=== PATIENT | female | born 1955 | race Caucasian/White ===

== ENCOUNTER → 2017-09-25 | Outpatient (CLI) | payer OTHER ==
--- NOTE | 2017-09-26 08:50 | MM ---
Reason for exam: screening (asymptomatic). Last mammogram was performed 14 years and 7 months ago. Physical Findings: A clinical breast exam by your physician is recommended on an annual basis and results should be correlated with mammographic findings. MG Screening Mammo w CAD Bilateral CC and MLO view(s) were taken. Prior study comparison: May 13, 2014, mammogram, performed at [facility]. The breast tissue is heterogeneously dense. This may lower the sensitivity of mammography. Finding: There are typically benign dystrophic, round, linear calcifications in both breasts. There is a chronic nodularity bilaterally. Asymmetric breast tissue in the left upper aspect. There is no discrete abnormality. ASSESSMENT: Benign, BI-RAD 2 RECOMMENDATION: Routine screening mammogram of both breasts in 1 year.
== END | disposition home or self-care (01) ==
LOC: RADMAMWWP 09:14
PROVIDERS: ATTEND Family Medicine
DX: Z12.31 Encounter for screening mammogram for malignant neoplasm of breast (principal)

== ENCOUNTER 2020-04-17 14:17 | Emergency (ER) | payer OTHER ==
[2020-04-17 14:25] VITALS: TEMP 97.8
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
[2020-04-17] MEDS: ORPHENADRINE 30 MG/ML 2 ML VIAL IM STA ×2 (14:53→14:54)
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
[2020-04-17] MEDS ORDERED: IBUPROFEN 600 MG STARTER PACK 4 TAB BTL PO STA (15:58)
[2020-04-17] MEDS ORDERED: CYCLOBENZAPRINE 10MG STARTER 3 TAB BTL PO STA (15:58)
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
[2020-04-17 17:13] VITALS: BP 138/90; PULSE 79; RESP 18
== END 2020-04-17 17:13 | disposition home or self-care (01) ==
LOC: EC 14:17
DX: S16.1XXA Strain of muscle, fascia and tendon at neck level, initial encounter (principal); S83.92XA Sprain of unspecified site of left knee, initial encounter; M54.2 Cervicalgia; M54.5 Low back pain; J45.909 Unspecified asthma, uncomplicated; K21.9 Gastro-esophageal reflux disease without esophagitis; E78.5 Hyperlipidemia, unspecified; F17.200 Nicotine dependence, unspecified, uncomplicated; Z79.51 Long term (current) use of inhaled steroids; Z79.899 Other long term (current) drug therapy; Z88.5 Allergy status to narcotic agent; V49.50XA Passenger injured in collision with unspecified motor vehicles in traffic accident, initial encounter; Y92.410 Unspecified street and highway as the place of occurrence of the external cause; Y93.89 Activity, other specified
CPT/HCPCS: 72100; 73562; 72125; 70450; 99285; 96372; J2360

== ENCOUNTER → 2024-03-05 | Outpatient (CLI) | payer OTHER ==
--- NOTE | 2024-03-05 12:59 | CTL ---
EXAMINATION TYPE: CT Low Dose Lung DATE OF EXAM ORDERED: 03/05/2024 HISTORY: 58-year-old female former smoker, 20 pack year history. Lung cancer screening. Z12.2 LUNG C A SCR Z87.[address] DLP: 126.[address] CTDI: 3.7 mGy Automated exposure control for dose reduction was used. SCREENING VISIT: Baseline COMPARISON: None TECHNIQUE: Low dose computed tomography scan was performed through the chest at 1 mm thick sections a nd reconstructed images in multiple planes at 1 mm and [address] DIAGNOSTIC QUALITY: Satisfactory FINDINGS: The heart is normal size without pericardial effusion. Mild RCA and LCA coronary calcifications. Aorta normal caliber with mild atherosclerotic arch calcifications and conventional arch vessel branc roman anatomy. No thoracic lymphadenopathy by CT size criteria. Mild diffuse bronchial wall thickening. A thin strandy atelectasis or scarring at the inferior lingul a. Minimal biapical pleural-parenchymal scarring. Couple adjacent 3 mm pulmonary nodules posterior right midlung, axial image 114. Calcified granuloma in the anterior basilar left lower lobe. 3 mm subpleural pulmonary nodule posterior left midlung, axial image 111. 4 mm subpleural pulmonary nodule lateral left lower lobe, axial image 176. 4 mm left lower lobe pulmonary nodule, axial image 124. 4 mm lateral left basilar pulmonary nodule, image 212. Small to moderate sized hiatal hernia. Cholecystectomy clips. Bones: [facility] within the lower thoracic spine. Slight accentuated mid to lower thoracic kyphosis. IMPRESSION: 1. LungRADS 2, benign. A few scattered pulmonary nodules measuring up to 4 mm on baseline screening. 2. Small to moderate size hiatal hernia. 3. DISH within the lower thoracic spine. CT LUNG RAD AND CT CHEST RECOMMENDATION: Lung-Rad 2 Benign Appearance or Behavior: Continue annual sc reening with LDCT in 12 months. S Modifier (other clinically significant findings): None
--- NOTE | 2024-03-10 08:25 | MM ---
Reason for Exam: Screening (asymptomatic). Last mammogram was performed 1 year(s) and 4 month(s) ago. Patient History: Menarche at age 15. First Full-Term at age 21. Postmenopausal. Patient has history of breast feeding. Patient used Hormonal Contraceptives for 25 years. Risk Values: Maru 5 year model risk: 1.2%. NCI Lifetime model risk: 4.4%. Prior Study Comparison: 02/10/2003 Bilateral Screening Mammogram, [facility]. 05/13/2014 Screening Mammogram, [facility]. 09/25/2017 Bilateral Screening Mammogram, [facility]. 10/10/2022 Bilateral Screening Mammogram, [facility]. Tissue Density: There are scattered areas of fibroglandular density. Findings: Analyzed By CAD. Chronic nodularity upper outer quadrant right breast. Extensive benign bilateral secretory calcifications redemonstrated. A couple areas of asymmetric density on either side are unchanged. There is no suspicious group of microcalcifications or new suspicious mass in either breast. Overall Assessment: Benign, BI-RAD 2 Management: Screening Mammogram of both breasts in 1 year. . Patient should continue monthly self-breast exams. A clinical breast exam by your physician is recommended on an annual basis. This exam should not preclude additional follow-up of suspicious palpable abnormalities. Note on Maru scores and lifetime risk: 1. A Maru score greater than 3% is considered moderate risk. If this is the case, consider specialist referral to assess eligibility for a risk reducing agent. 2. If overall lifetime risk for the development of breast cancer is 20% or higher, the patient may qualify for future screening with alternating mammogram and breast MRI. Electronically signed and approved by: Oscar Armstrong M.D. Radiologist
== END | disposition home or self-care (01) ==
LOC: RADMAMWWP 11:29
PROVIDERS: ATTEND Family Medicine
DX: Z12.31 Encounter for screening mammogram for malignant neoplasm of breast (principal); Z12.2 Encounter for screening for malignant neoplasm of respiratory organs; K44.9 Diaphragmatic hernia without obstruction or gangrene; Z78.0 Asymptomatic menopausal state; Z87.891 Personal history of nicotine dependence
CPT/HCPCS: 71271; 77063; 77067